=== PATIENT | male | born 1995 | race Caucasian/White ===

== ENCOUNTER 2019-05-03 12:24 | Emergency (ER) | payer OTHER ==
[~2019-05-03] VITALS: Ht 170.2 cm; Wt 86.4 kg
[2019-05-03] MEDS ORDERED: DiphenhydrAMINE HCL 25 MG CAPSULE PO ONE (14:30)
[2019-05-03 15:18] VITALS: BP 125/77
== END 2019-05-03 15:21 | disposition home or self-care (01) ==
LOC: EMS 12:29
DX: T78.40XA Allergy, unspecified, initial encounter (principal); X58.XXXA Exposure to other specified factors, initial encounter